=== PATIENT | female | born 1995 | race Caucasian/White ===

== ENCOUNTER 2016-09-10 11:28 | Emergency (ER) | payer OTHER ==
[2016-09-10 11:59] VITALS: BP 121/66
== END 2016-09-10 12:05 | disposition left against medical advice (07) ==
LOC: ED 11:28
DX: Z53.21 Procedure and treatment not carried out due to patient leaving prior to being seen by health care provider (principal)

== ENCOUNTER 2016-09-18 23:52 | Emergency (ER) | payer OTHER ==
[2016-09-19 01:45] VITALS: BP 119/60
== END 2016-09-19 01:45 | disposition home or self-care (01) ==
LOC: ED 23:52
DX: G44.209 Tension-type headache, unspecified, not intractable (principal)
CPT/HCPCS: J1885; J2765

== ENCOUNTER 2018-02-14 18:35 | Emergency (ER) | payer OTHER ==
[~2018-02-14] VITALS: Ht 170.2 cm; Wt 82.6 kg
[2018-02-14 18:52] VITALS: Ht 170.2 cm; Wt 82.6 kg
[2018-02-14 19:31] LABS: CALCIUM 8.7 mg/dL (8.5-10.1); CARBON DIOXIDE 25.9 mmol/L (21-32); CHLORIDE SERUM 106 mmol/L (98-107); CREATININE SERUM 0.8 mg/dL (0.6-1.0); GFR1 > 60 mL/min; GLUCOSE SERUM 96 mg/dL (74-106); POTASSIUM SERUM 3.7 mmol/L (3.5-5.1); SODIUM SERUM 142 mmol/L (136-145)
[2018-02-14 19:32] LABS: BASOPHIL % 0.7 % (0-2); PLATELET COUNT 276 x10^3mcL (130-400); RED CELL DISTRIBUTION WIDTH 13.6 % (11.5-14.5)
[2018-02-14 19:36] LABS: ALKALINE PHOSPHATASE 75 U/L (46-116); ALT/SGPT 23 U/L (14-59); AST/SGOT 19 U/L (15-37); BILIRUBIN TOTAL 0.39 mg/dL (0.20-1.00); TOTAL PROTEIN, SERUM 7.8 g/dL (6.4-8.2)
[2018-02-14 20:02] VITALS: BP 128/68
== END 2018-02-14 20:02 | disposition home or self-care (01) ==
LOC: ED 18:35
PROVIDERS: Emergency Medicine
DX: L65.9 Nonscarring hair loss, unspecified (principal); R10.30 Lower abdominal pain, unspecified; N93.9 Abnormal uterine and vaginal bleeding, unspecified
CPT/HCPCS: 36415

== ENCOUNTER 2019-06-06 01:42 | Emergency (ER) | payer MEDICAID ==
[~2019-06-06] VITALS: Ht 172.7 cm; Wt 84.0 kg
[2019-06-06 02:08] VITALS: BP 114/56
== END 2019-06-06 02:07 | disposition home or self-care (01) ==
LOC: ED 01:42
DX: R59.0 Localized enlarged lymph nodes (principal); H92.01 Otalgia, right ear